=== PATIENT | female | born 2000 | race Caucasian/White ===

== ENCOUNTER → 2021-05-04 | Outpatient (CLI) | payer OTHER ==
--- NOTE | 2021-05-04 08:45 | MR ---
Brain MRI without contrast HISTORY: Migraine headache Multiplanar multisequence imaging obtained through the brain There is no restricted diffusion. Brain signal is maintained, there is no hemorrhage or hydrocephalus . The corpus callosum, pituitary, cervical medullary junction, cerebellopontine angles are normal. Th ere are expected vascular flow voids. Orbits show symmetric appearance. Paranasal sinuses are well ae rated. IMPRESSION: Normal brain MRI
== END | disposition home or self-care (01) ==
LOC: RADMRIMAIN 07:52
PROVIDERS: ATTEND Psychiatry & Neurology Neurology
DX: G43.909 Migraine, unspecified, not intractable, without status migrainosus (principal)
CPT/HCPCS: 70551